=== PATIENT | female | born 1995 | race Two or more races ===

== ENCOUNTER 2024-11-24 17:56 | Emergency (ER) | payer BC, SELFPAY ==
--- NOTE | 2024-11-24 18:31 | XR_ITS ---
Examination: Knee, left , 3 views Technique: Knee AP, lateral, oblique 3 views Date and time of exam: 1 hrs. Indications: Laceration to the knee today with knee pain. Findings: No fracture or dislocation No foreign body Impression: No opaque foreign body
[2024-11-24 18:35] VITALS: BP 113/77; PULSE 88; RESP 18; TEMP 36.9; O2SAT 99; BMI 30.2
[2024-11-24] MEDS: AMOXICILLIN/POT CLAV 875 TABLET 1 TAB PO (19:11)
[2024-11-24] MEDS: DIPHTH,PERTUSS(ACELL),TET VAC 0.5 ML VIAL IMi (19:11)
[2024-11-24] MEDS: LIDOCAINE HCL 1% 20 ML VIAL INFL (19:11)
[2024-11-24] MEDS: BACITRACIN OINT 1 GM PACKET TOP (19:12)
--- NOTE | 2024-11-24 19:36 | EDNOTE_ITS ---
ED Wound/Laceration-RME/HPI General Chief Complaint: Wound/Laceration Stated Complaint: Laceration to left knee Time Seen by Provider: 11/24/24 18:14 Arrival date/time: 11/24/24 17:56 RME / HPI RME / HPI narrative: This section includes all my notes and documentations, including HPI, PE, and ED course. Alan Correa MD HPI: 28-year-old female here to be evaluated with left knee laceration. Injury occurred just prior to arrival outside while skateboarding. She found the left knee. No other complaints. ROS: All negative except as documented in HPI. Physical Exam: General: Alert and oriented. Eyes: Conjunctivae and lids clear. ENT: No nasal congestion. Neck: Supple. Lungs: No respiratory distress. Skin: Warm and dry. Neuro: Alert and oriented X 3. Left Knee: Anteriorly, there is a 4.5 cm full?skin thickness gaping wound with active bleeding. My interpretation of the left knee x-rays is no acute fracture, official radiology report is pending. At this point, diagnoses include left knee laceration. Laceration repair procedure note: The wound was prepped and draped in normal sterile fashion. Local anesthesia achieved with 1% lidocaine, Profuse irrigation performed under the sink with soap and water and with normal saline. Wound repaired with 7 simple sutures using 4-0 nylon. Good approximation and hemostasis achieved. Tdap and Augmentin given. Topical ABX and dressing applied. Patient tolerated well with no complications. Provided good wound care instructions. Based on my best medical judgment, made decision no further evaluation or treatment indicated at this time. Patient understands and agrees to the discharge instructions customized and printed, see below. Discharge instructions from Dr. Correa:? -- Your laceration was repaired with 7 stitches. -- Keep the current dressing intact for 24 hours. -- After 24 hours, change the dressing once daily. -- First remove the dressing gently.? If it does not come off easily, run water through it until it comes off easily. -- Then gently wash with soap and water. -- After completely drying, apply antibiotic ointment and new dressing. -- Elevate above the waist level today and tomorrow as much as possible.? -- See your doctor or return here in 7-10 days for suture removal.? Total of 7 stitches. -- Seek immediate medical care with fever, spreading redness from the wound, or with any concerns. Alan Correa MD Related Data Previous Rx's ?Medication ?Instructions ?Recorded amoxicillin 875 mg-potassium 1 tab PO BID #4 tabs 11/24/24 clavulanate 125 mg tablet Allergies Allergy/AdvReac Type Severity Reaction Status Date / Time No Known Allergies Allergy Verified 11/24/24 18:01 Course Quality Measures none Orders Category Date Time Status Wound Care [Wound Care] NOW Care 11/24/24 18:32 Active XR knee LT 3V Stat Exams 11/24/24 18:31 Taken Amoxicillin/Pot Clav 875 [Augmentin 875] Med 11/24/24 18:32 Discontinued 1 tab PO X1 ONE Bacitracin Oint pkt Med 11/24/24 18:32 Discontinued 1 gm TOP X1 ONE Lidocaine 1% 20 ml [Xylocaine 1% 20 ML] Med 11/24/24 18:32 Discontinued 20 ml INFL X1 ONE Tet,Diphth,Pertuss(Acell)-Tdap [Boostrix Vacc] Med 11/24/24 18:32 Discontinued 0.5 ml IMI .ONCE ONE Vital Signs Vital signs: Vital Signs Temperature 98.5 F 11/24/24 18:35 Pulse Rate 88 11/24/24 18:35 Respiratory Rate 18 11/24/24 18:35 Blood Pressure 113/77 11/24/24 18:35 Pulse Oximetry (%) 99 11/24/24 18:35 Oxygen Delivery Method Room Air 11/24/24 18:35 Wound / Laceration Patient data External records reviewed:: None Clinical information provided by:: patient Social determinants that could affect healthcare access:: none Patient has the following chronic illnesses:: None How is presenting disease/condition affected by chronic disease/condition?: no chronic disease Evaluation data The following diagnostics were reviewed and interpreted by me:: radiology exam(s) Lab and/or radiology exams considered but not ordered:: None Interpretation Summary: No fracture on left knee x-rays Medications / Prescriptions Medications or Prescriptions considered but not ordered:: None Medication administrations:: Medication Administration History Discontinued Medications Amoxicillin/Clavulanate Potassium (Amoxicillin/Pot Clav 875 Tablet) 1 tab PO X1 ONE Stop: 11/24/24 18:33 Last Admin: 11/24/24 19:11 Dose: 1 tab Documented By: CISCO Bacitracin (Bacitracin Oint 1 Gm Packet) 1 gm TOP X1 ONE Stop: 11/24/24 18:33 Last Admin: 11/24/24 19:12 Dose: 1 gm Documented By: CISCO Diphtheria/Tetanus/Acell Pertussis (Diphth,Pertuss(Acell),Tet Vac 0.5 Ml Vial) 0.5 ml IMi .ONCE ONE Stop: 11/24/24 18:33 Last Admin: 11/24/24 19:11 Dose: 0.5 ml Documented By: CISCO Lidocaine HCl (Lidocaine Hcl 1% 20 Ml Vial) 20 ml INFL X1 ONE Stop: 11/24/24 18:33 Last Admin: 11/24/24 19:11 Dose: 20 ml Documented By: CISCO Tdap and lidocaine and topical ABX and Augmentin Consultations Consultation(s) initiated? (list below): No Diagnosis Wound Differential Diagnosis: laceration, abrasion and other (Fracture, contusion) Most likely diagnosis given after review of the tests above:: Left knee laceration Admission Indicated Admission indicated?: not indicated Explain why admission is indicated or not indicated:: Admission criteria not met Admission Request Was there a request for admission?: No Disposition Plan Disposition Plan: Discharge Discharge Attestation Discharge Attestation: The patient and all family members were given an opportunity to ask questions and understood the discharge instructions. Discharge instructions specifically effects, indications for sooner follow up or return to the emergency department, and the expected course of current diagnosis. Patient condition: Stable Discharge Plan Plan Patient Disposition: HOME (Self Care) Prescriptions/Referrals Prescriptions/Med Rec: New amoxicillin-pot clavulanate 875-125 mg tablet 1 tab PO BID Qty: 4 0RF Referrals: No Primary/Family,Physician [Primary Care Provider] - In 1 week Problem List Clinical Impression: Laceration Patient/Caregiver Discharge Instructions Discharge Activity: activity as tolerated Education Materials: ED Laceration: All Closures Additional Instructions: Discharge instructions from Dr. Correa:? -- Your laceration was repaired with 7 stitches. -- Keep the current dressing intact for 24 hours. -- After 24 hours, change the dressing once daily. -- First remove the dressing gently.? If it does not come off easily, run water through it until it comes off easily. -- Then gently wash with soap and water. -- After completely drying, apply antibiotic ointment and new dressing. -- Elevate above the waist level today and tomorrow as much as possible.? -- See your doctor or return here in 7-10 days for suture removal.? Total of 7 stitches. -- Seek immediate medical care with fever, spreading redness from the wound, or with any concerns. Print Language: Fijian Stand Alone Forms: [facility] [employer] Info., Patient Portal Info Letter
[2024-11-24 19:43] VITALS: BP 118/76; PULSE 76; RESP 18; TEMP 36.7; O2SAT 99
== END 2024-11-24 19:46 | disposition home or self-care (01) ==
PROVIDERS: Emergency Provider Emergency Medicine
DX: S81.012A Laceration without foreign body, left knee, initial encounter (principal); V00.131A Fall from skateboard, initial encounter; Y93.51 Activity, roller skating (inline) and skateboarding; Z23 Encounter for immunization
CPT/HCPCS: 12002; 73562; 90471; 90715; 99283; J3490; A9270

== ENCOUNTER 2024-12-08 11:07 | Emergency (ER) | payer BC, SELFPAY ==
--- NOTE | 2024-12-08 11:26 | EDNOTE_ITS ---
ED Wound/Laceration-RME/HPI General Chief Complaint: Wound Recheck / Suture Removal Stated Complaint: LEFT KNEE SUTURE REMOVAL Time Seen by Provider: 12/08/24 11:10 Arrival date/time: 12/08/24 11:07 28-year-old female presents to the emergency department today for suture removal left knee Limitations: no limitations Related Data Previous Rx's ?Medication ?Instructions ?Recorded amoxicillin 875 mg-potassium 1 tab PO BID #4 tabs 11/24/24 clavulanate 125 mg tablet Allergies Allergy/AdvReac Type Severity Reaction Status Date / Time No Known Allergies Allergy Verified 12/08/24 11:08 Review of Systems Review of Systems Systems Reviewed: All systems reviewed, normal except as documented Constitutional Constitutional: Reports system reviewed and no additional complaints, except as documented, Denies fever(s) and Denies headache(s) Eyes Eyes: Reports system reviewed and no additional complaints, except as documented and Denies blurry vision ENT Ears, Nose, Mouth, and Throat: Reports system reviewed and no additional complaints, except as documented, Denies headache(s), Denies nasal congestion and Denies nasal discharge Cardiovascular Cardiovascular: Reports system reviewed and no additional complaints, except as documented, Denies chest pain and Denies dyspnea Respiratory Respiratory: Reports system reviewed and no additional complaints, except as documented, Denies chest congestion, Denies cough and Denies dyspnea Gastrointestinal Gastrointestinal: Reports system reviewed and no additional complaints, except as documented and Denies abdominal pain Integumentary/Breasts Skin/Breast: Reports system reviewed and no additional complaints, except as documented and Denies rash Neurologic Neurologic: Reports system reviewed and no additional complaints, except as documented, Reports as per HPI and Denies headache(s) Past Medical History Past Medical History NEUROLOGIC: Negative Neurological Disorders CARDIAC: Negative Cardiac Disorders ED Exam General Limitations: Present no limitations General appearance: Present alert and in no apparent distress Head Head exam: Present atraumatic Eye Eye exam: Present normal appearance, PERRL and EOMI ENT ENT exam: Present normal exam, normal oropharynx and mucous membranes moist Neck Neck exam: Present normal inspection, full ROM and trachea midline Chest Chest inspection: Present normal inspection and symmetric chest wall rise Respiratory Respiratory exam: Present normal lung sounds bilaterally Cardiovascular Cardiovascular exam: Present regular rate, normal rhythm and normal heart sounds Abdominal Exam Abdominal exam: Present soft and normal bowel sounds Extremities Exam Extremities exam: Present normal inspection, full ROM and normal capillary refi ll; Absent tenderness or joint swelling Back Exam Back exam: Present normal inspection and full ROM Neurological Exam Neurological exam: Present alert, oriented X3, CN II-XII intact, normal gait and reflexes normal; Absent motor sensory deficit Psychiatric Psychiatric exam: Present normal affect and normal mood Skin Skin exam: Present warm, dry and other (Sutures in place left) Course Quality Measures none Vital Signs Vital signs: O2 saturation 98% room air with normal Wound / Laceration MDM Narrative MDM Narrative:: 28-year-old female presents to the emergency department today for suture removal left knee On exam patient does not appear ill or toxic patient does not appear in acute distress no evidence of infection Sutures removed in their entirety there is a small wound dehiscence Patient discharged home in no distress to follow-up with primary care doctor in the next 24 to 48 hours and for any worsening symptoms to return to the ER immediately Patient data External records reviewed:: [facility] previous records Clinical information provided by:: patient Social determinants that could affect healthcare access:: none Patient has the following chronic illnesses:: None How is presenting disease/condition affected by chronic disease/condition?: no chronic disease Evaluation data The following diagnostics were reviewed and interpreted by me:: other (specify) (N/A) Lab and/or radiology exams considered but not ordered:: Consider not ordered Interpretation Summary: N/A Medications / Prescriptions Medications or Prescriptions considered but not ordered:: No meds Medication administrations:: No meds Consultations Consultation(s) initiated? (list below): No Diagnosis Wound Differential Diagnosis: laceration, abrasion and avulsion of skin Most likely diagnosis given after review of the tests above:: Suture removal Admission Indicated Admission indicated?: not indicated Admission Request Was there a request for admission?: No Disposition Plan Disposition Plan: Discharge Discharge Attestation Discharge Attestation: The patient and all family members were given an opportunity to ask questions and understood the discharge instructions. Discharge instructions specifically effects, indications for sooner follow up or return to the emergency department, and the expected course of current diagnosis. Patient condition: Stable Discharge Plan Plan Patient Disposition: HOME (Self Care) Disposition Comment: Stable Prescriptions/Referrals Prescriptions/Med Rec: No Action amoxicillin-pot clavulanate 875-125 mg tablet 1 tab PO BID Qty: 4 0RF Problem List Clinical Impression: Visit for suture removal Patient/Caregiver Discharge Instructions Education Materials: ED Stitches/Staple Removal No ... 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 Correa
== END 2024-12-08 11:26 | disposition home or self-care (01) ==
PROVIDERS: Emergency Provider Emergency Medicine
DX: Z48.02 Encounter for removal of sutures (principal)
CPT/HCPCS: 99282

== ENCOUNTER 2025-03-14 09:09 | Outpatient (AMB) | payer BC, SELFPAY ==
[2025-03-14 09:30] VITALS: BP 114/67; PULSE 81; RESP 16; TEMP 36.5; O2SAT 98; BMI 29.7
--- NOTE | 2025-03-14 09:30 | OBCLNT_ITS ---
Vital Signs 03/14/25 09:30 Height 1.68 m Height Method Stated Weight 83.574 kg Weight Measurement Method Standing Scale BMI 29.7 BP 114/67 Blood Pressure Source Automatic Cuff Blood Pressure Location Left Upper Arm Position Sitting Respiration 16 Pulse 81 Pulse Source Monitor Temp 97.7 F Temp Source Oral Pulse Oximetry (%) 98 Oxygen Delivery Method Room Air Allergies/Home Meds Allergies & Medications Allergies No Known Allergies Allergy (Verified 03/14/25 09:31) Intake Visit Data Collection New Patient or Established: Established Patient (seen at [facility] within 3 years) Reason for Visit:: INITIAL CACRE Seen by Clinical Staff ONLY (RN/MA): No Water Restoration Technician Required: No Do You Feel Safe at Home: Yes Authorities Contacted: N/A PCP or OBGYN visit in last 3 months: Yes Hx Now: Yes Are you currently on any form of Control: No Last menstrual period: 11/22/24 Pain Present Currently: No Pain Scale Used: Douglas-Shine/Numerical Pain scale:: 0 Smoking Status Smoking Status: Current some day smoker Cessation Counseling Provided: YVAN was advised that quitting smoking is the single most important factor to protect the health of themselves and their family. Discussed the benefits of quitting smoking with patient. Encouraged patient to quit smoking and provided Cessation assistance materials and resources. Tobacco Use: Cigarette (3/day) Years smoked: 8 Are you interested in Quitting?: No Questionnaires Covid-19 Vaccine Questionnaire Has patient been vacinated for Covid-19 Have you been vacinated for Covid-19: No PHQ-9 PHQ-2 Over the last 2 weeks, how often have you been bothered by any of the following problems? 1. Little interest or pleasure in doing things: more than half the days 2. Feeling down, depressed, or hopeless: several days Total score: 3 PHQ-9 3. Trouble falling or staying asleep, or sleeping too much: Not at all 4. Feeling tired or having little energy: Several days 5. Poor appetite or overeating: Not at all 6. Feeling bad about yourself - or that you are a failure or have let yourself or your family down: Not at all 7. Trouble concentrating on things, such as reading the newspaper or watching television: Not at all 8. Moving or speaking so slowly that other people could have noticed? - Or the opposite - being so fidgety or restless that you have been moving around a lot more than usual: not at all 9. Thoughts that you would be better off or of hurting yourself in some way: Not at all Total score: 4.0 Source: Developed by Drs. Justice May, Italia Mtz, Claudio Moreno and colleagues, with an educational sean from [employer]. Depression screen completed yes Social History Living Situation History Marital Status: Single Lives With: Children Housing: Apartment Tobacco History Smoking Status: Current some day smoker Second Hand Smoke Exposure: Yes Alcohol History Alcohol Intake: Former Alcohol Intake Frequency: holidays/special occasions only Substance Use History Substance Use: MARIJUANA Domestic Abuse History Do You Feel Safe at Home: Yes Past Medical History Past Medical History Have you ever been diagnosed with any of the following: Neurological Problems Cerebrovascular Accident (CVA): No Transient Ischemic Attacks (TIA): No Dementia: No Alzheimer's Disease: No Parkinson's Disease: No Brain Tumor: No Seizures: No Guillain-[place] Syndrome: No Cardiology Problems Myocardial Infarction: No Cardiac Arrhythmia: No Atrial Fibrillation: No Aneurysm: No Congestive Heart Failure: No Hypotension: No Respiratory Problems Chronic Obstructive Pulmonary Disease (COPD): No Asthma: No Bronchitis: No Emphysema: No Tuberculosis: No Hx Cough: No Cough: No Wheezing: No Smoking: No Smoking Cessation Counseling: No Smoking Exposure: No Tobacco Use: No Stomache/Intestinal Problems Liver Cancer: No Hepatitis: No Cirrhosis: No Pancreatic Cancer: No Gall Bladder Disease: No Crohn's Disease: No Genital/Urinary Problems Chronic Kidney Disease: No Renal Disease: No Inguinal Hernia: No Dialysis: No Reproductive Problems Breast Cancer: No Endometriosis: No Fibroids: No Genital Herpes: No Previous Pregnancies: Yes Syphilis: No Uterine Prolapse: No Musculoskeletal Problems Muscular Dystrophy: No Myasthenia Gravis: No Marfan's Syndrome: No Gout: No Scoliosis: No Carpal Tunnel Syndrome: No Fibromyalgia: No Head,Eye,Nose,Throat Problems Cataracts: No Glaucoma: No Blind: No Retinal Detachment: No Macular Degeneration: No Endocrine Problems Diabetes Mellitus Type 1: No Diabetes Mellitus Type 2: No [place]'s Syndrome: No Bolivar's Disease: No Blood Problems Anemia: No Leukemia: No Sickle Cell Disease: No Clotting Problems: No Psychologic Problems Schizophrenia: No Recreational Drug Use: No Bipolar Disorder: No Depression: Yes Anxiety: No Behavior Problems: No Self-Mutilation: No Attention Deficit Disorder: No Attention Deficit Hyperactivity Disorder: No Depression: No Post Traumatic Stress Disorder: No Eating Disorder: No Other Problems Hospitalization: No Autoimmune Disease: No Down Syndrome: No Autism: No Developmental Delay: No Cosmetic Surgery: No Shingles: No Chicken Pox: No Measles: No Mumps: No Lung Cancer: No Ovarian Cancer: No Surgical History Angioplasty: No Appendectomy: No Bariatric Surgery: No Breast Surgery: No Cancer Surgery: No Pacemaker: No Sinus Surgery: No Splenectomy: No History of Present Illness HPI Narrative 29-year-old 4 para 2 SAB 1 comes first visit today at [facility] OB clinic. Last period November 22, 2024. Estimated due date August 28, 2025. Reports sure dates. Menses are every month x 5 days. Unplanned . Father the baby is involved. Patient denies any coexisting chronic illnesses. History of marijuana use the this . And she had a tummy tuck 3 years ago. Reports that nausea is resolved. She is. Patient taking Gummies. Denies any come plaints or discomforts with the at this time. Patient has stopped working. OB Initial Visit OB Flowsheet OB Flowsheet Initial Weight: Not Recorded Date -?-?-?-?-?-?-?-?-?-?-?-?- EGA Weight Edema CTX Effacement BP Fundal ht Pres Dilation Effacement Station Visit Note Alb Glu FHR Mov 03/14/25 -?-?-?-?-?-?-?-?-?-?-?-?- 16w 0d 83.574 kg absent absent 114/67 16 29-year-old 4 para 2 with good dates. Unplanned . No complaints of discomforts. No SAB complaints. Father of the baby is involved. Patient is still ambivalent about . Continue to take Gummies. Advised taking vitamin D and calcium supplement as well. Avoid THC. Discussed diet and weight. I ordered OB panel. And I also ordered NIPT and carrier screens. Patient scheduled with maternal- medicine for anatomy scan. Return in 4 weeks OB check 146 active Menstrual History Menstrual reliability: approximate (month known) Flow: normal Menstrual regularity: regular Monthly: Yes Age at menarche: 14 On control pills at conception: No Date of positive home test: 02/11/25 Associated symptoms (LMP): Reports nausea, vomiting, fatigue and breast tenderness OB History : 4 Para: 2 Hx Total # of Abortions (Spontaneous & Elective): 1 # of Living Children: 2 Delivery History 1st : Child's name: DANIELLE date: 05/31/15 sex: male Delivery type: vaginal Delivery complications: NONE History of depression before or after : No 2nd : Child's name: PIOTR date: 05/31/17 sex: male Delivery type: vaginal Delivery complications: NONE History of depression before or after : No Infection History & Risk Evaluation History of STDs: none Genetic Screening & History Genetic Screening/Teratology Counseling - Includes patient, baby's father, or anyone in either family with: 1. Patient's age 35 years or older as of estimated date of delivery: No 2. Thalassemia (Belgian, Pitcair[place] Islander, Mediterranean, or Background); MCV less than 80: No 3. Neural Tube Defect (Meningomyelocele, Spina Bifida, or Anencephaly): No 4. Congenital Heart Defect: No 5. Down Syndrome: No 6. Vinod-Sachs (Ashkenazi Roman Catholic, Cajun, Kyrgyz Kittitian): No 7. Brenda Disease (Ashkenazi Roman Catholic): No 8. Familial Dysautonomia (Ashkenazi Roman Catholic): No 9. Sickle Cell Disease or Trait (): No 10. Hemophilia or other blood disorders: No 11. Muscular Dystrophy: No 12. Cystic Fibrosis: No 13. [place]'s Chorea: No 14. Mental Retardation/Autism: No 15. Other inherited genetic or chromosomal disorder: No 16. Maternal Metabolic Disorder (EG,TYPE 1 Diabetes, PKU): No 17. Patient or baby's father had a child with defects not listed above: No 18. Recurrent loss or a stillbirth: No 19. Medications (including supplements, vitamins, herbs or otc drugs)/illicit/recreational drugs/alcohol since last menstrual period: No 20. Any other: No Infection History 1. Live with someone with TB or exposed to TB: No 2. Rash or viral illness since last menstrual period: No 3. Hepatitis B,C: No Other (see comments) Source: [employer] Review of Systems Review of Systems Systems Reviewed: All systems reviewed, normal except as documented Constitutional Constitutional: Reports fatigue Gastrointestinal Gastrointestinal: Reports nausea and Reports vomiting Endocrine Endocrine: Reports fatigue Exam General Limitations: no limitations General Appearance: alert, in no apparent distress, comfortable, cooperative, healthy appearing, well developed and well groomed Head Head exam: atraumatic, normocephalic and normal inspection Chest Chest inspection: Present normal inspection and symmetric chest wall rise Resp Respiratory exam: Present normal lung sounds bilaterally Card Cardiovascular exam: Present regular rate, normal rhythm and normal heart sounds Abdominal Abdominal exam: Present soft (fh:16, fht: 146), normal bowel sounds and scar (low skin incision, tummy tuck) Psych Psychiatric exam: Present normal affect and normal mood Skin Skin exam: Present warm, dry, intact and normal color Assessment & Plan Diagnosis / Problem List (1) Supervision of normal intrauterine in multigravida in second trimester: Status: Acute Plan Continue Gummies. Advised to start vitamin D and calcium. Discussed diet and weight loss. Increase fluids. Avoid sugary foods and drinks. Schedule anatomy scan with MFM. OB panel today. NIPT with carrier screening today. SAB precautions. Return in 4 weeks OB follow-up Additional Plan Follow Up: 4 Weeks (rtc for OBC) Office Procedures OB Clinic LOC & Office Proc's Nursing/Assessment Patient Status: Established Patient OB Clinic Nursing Assessment: Medication Reconciliation, Update PMH in EMR and Vital Signs OB Clinic Coordination of Care: Complex Care and Chronic Disease 1-5, Consent,records obtained, informed consent, Education Simp Pt/Fam, Lab and Imaging orders, Results/Orders obtained and Staff clarify orders Special Needs: Heart tones Established Patient Charge Established Patient Point Assignment: 135 Established Patient Point Charge: EP Level 4 (120-155)
== END 2025-03-14 09:49 | disposition home or self-care (01) ==
LOC: HODSOBC 09:09
PROVIDERS: Supervising Provider Advanced Practice Midwife; Visit Provider Advanced Practice Midwife
DX: O09.892 Supervision of other high risk pregnancies, second trimester (principal); Z3A.16 16 weeks gestation of pregnancy; O99.332 Smoking (tobacco) complicating pregnancy, second trimester; F17.210 Nicotine dependence, cigarettes, uncomplicated; Z71.6 Tobacco abuse counseling; O99.322 Drug use complicating pregnancy, second trimester; F12.90 Cannabis use, unspecified, uncomplicated
CPT/HCPCS: 99214; G0463

== ENCOUNTER 2025-04-11 09:13 | Outpatient (AMB) | payer BC, SELFPAY ==
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
[2025-04-11 09:46] VITALS: BP 119/77; PULSE 88; RESP 16; TEMP 36.6; O2SAT 98; BMI 30.7
[2025-04-11 11:28] LABS: Bilirubin,Urine Clinitek Negative (Negative); Blood,Urine Clinitek Negative (Negative); Glucose, Urine Clinitek Negative (Negative); Ketones,Urine Clinitek Negative (Negative); Leukocyte Esterase,Urine Clin Negative (Negative); Nitrite,Urine Clinitek Negative (Negative); PH,Urine Clinitek 8.5 (5.0-7.0); Protein,Urine Clinitek Negative (Neg - Trace); Specific Gravity,Urine Clin 1.015 (1.001-1.030); Urobilinogen,Urine Clinitek 0.2 mg/dL (0.0-1.0)
== END 2025-04-11 10:18 | disposition home or self-care (01) ==
LOC: HODSOBC 09:13
PROVIDERS: Supervising Provider Advanced Practice Midwife; Visit Provider Advanced Practice Midwife
DX: O09.892 Supervision of other high risk pregnancies, second trimester (principal); O99.332 Smoking (tobacco) complicating pregnancy, second trimester; F17.210 Nicotine dependence, cigarettes, uncomplicated; Z3A.20 20 weeks gestation of pregnancy; Z71.6 Tobacco abuse counseling
CPT/HCPCS: 81001; 99215; G0463

== ENCOUNTER 2025-04-26 09:26 | Outpatient (AMB) | payer BC, SELFPAY ==
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
[2025-04-26 09:48] VITALS: BP 109/73; PULSE 83; RESP 18; TEMP 36.5; O2SAT 98; BMI 31.1
== END 2025-04-26 10:14 | disposition home or self-care (01) ==
LOC: HODSOBC 09:26
PROVIDERS: PCP Advanced Practice Midwife; Referring Provider Advanced Practice Midwife; Supervising Provider Advanced Practice Midwife; Visit Provider Advanced Practice Midwife
DX: Z34.82 Encounter for supervision of other normal pregnancy, second trimester (principal); Z3A.22 22 weeks gestation of pregnancy
CPT/HCPCS: 99214; G0463

== ENCOUNTER 2025-06-06 09:13 | Outpatient (AMB) | payer BC, SELFPAY ==
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
[2025-06-06 09:46] VITALS: BP 106/73; PULSE 100; RESP 17; TEMP 36.3; O2SAT 97; BMI 31.6
== END 2025-06-06 09:59 | disposition home or self-care (01) ==
LOC: HODSOBC 09:13
PROVIDERS: PCP Advanced Practice Midwife; Referring Provider Advanced Practice Midwife; Supervising Provider Obstetrics & Gynecology; Visit Provider Advanced Practice Midwife
DX: Z34.83 Encounter for supervision of other normal pregnancy, third trimester (principal); Z3A.28 28 weeks gestation of pregnancy
CPT/HCPCS: 99214; G0463

== ENCOUNTER 2025-07-25 08:33 | Outpatient (AMB) | payer BC, SELFPAY ==
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
[2025-07-25 08:47] VITALS: BP 114/77; PULSE 93; RESP 18; TEMP 36.2; O2SAT 98; BMI 34.0
== END 2025-07-25 09:31 | disposition home or self-care (01) ==
LOC: HODSOBC 08:33
PROVIDERS: Supervising Provider Advanced Practice Midwife; Visit Provider Advanced Practice Midwife
DX: O09.93 Supervision of high risk pregnancy, unspecified, third trimester (principal); Z3A.35 35 weeks gestation of pregnancy
CPT/HCPCS: 99214; G0463

== ENCOUNTER 2025-08-01 08:59 | Outpatient (AMB) | payer BC, SELFPAY ==
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
[2025-08-01 09:30] VITALS: BP 118/76; PULSE 86; RESP 16; TEMP 36.2; O2SAT 98; BMI 34.9
== END 2025-08-01 09:57 | disposition home or self-care (01) ==
PROVIDERS: PCP Advanced Practice Midwife; Referring Provider Advanced Practice Midwife; Supervising Provider Advanced Practice Midwife; Visit Provider Advanced Practice Midwife
DX: O09.893 Supervision of other high risk pregnancies, third trimester (principal); O99.820 Streptococcus B carrier state complicating pregnancy; O24.410 Gestational diabetes mellitus in pregnancy, diet controlled; Z3A.36 36 weeks gestation of pregnancy; Z71.6 Tobacco abuse counseling; F17.210 Nicotine dependence, cigarettes, uncomplicated
CPT/HCPCS: 99213; G0463

== ENCOUNTER 2025-08-16 08:36 | Outpatient (AMB) | payer BC, SELFPAY ==
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
[2025-08-16 08:51] VITALS: BP 120/80; PULSE 94; RESP 16; TEMP 36.6; O2SAT 98; BMI 36.0
== END 2025-08-16 09:24 | disposition home or self-care (01) ==
LOC: HODSOBC 08:36
PROVIDERS: PCP Family Medicine; Referring Provider Family Medicine; Supervising Provider Advanced Practice Midwife; Visit Provider Advanced Practice Midwife
DX: O09.893 Supervision of other high risk pregnancies, third trimester (principal); Z3A.38 38 weeks gestation of pregnancy; O99.333 Smoking (tobacco) complicating pregnancy, third trimester; Z71.6 Tobacco abuse counseling; F17.210 Nicotine dependence, cigarettes, uncomplicated
CPT/HCPCS: 99213; G0463

== ENCOUNTER 2025-08-24 13:00 | Observation (INO) | payer BC, SELFPAY ==
[2025-08-24 13:11] VITALS: BP 118/75; PULSE 88
[2025-08-24 13:22] VITALS: BMI 36.6
[2025-08-24 13:23] VITALS: RESP 16; TEMP 36.7; O2SAT 98
[2025-08-24 13:33] VITALS: BP 118/75; PULSE 88; RESP 16; RESP 98; TEMP 36.7
== END 2025-08-24 13:50 | disposition home or self-care (01) ==
PROVIDERS: Admitting Provider Advanced Practice Midwife; Visit Provider Advanced Practice Midwife
DX: O26.893 Other specified pregnancy related conditions, third trimester (principal); Z3A.39 39 weeks gestation of pregnancy; R10.2 Pelvic and perineal pain
CPT/HCPCS: 59025; 59899

== ENCOUNTER 2025-08-30 09:28 | Outpatient (AMB) | payer BC, SELFPAY ==
[2025-08-30 09:50] VITALS: BP 126/83; PULSE 88; RESP 16; TEMP 36.5; O2SAT 98; BMI 37.2
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
== END 2025-08-30 10:24 | disposition home or self-care (01) ==
PROVIDERS: Supervising Provider Advanced Practice Midwife; Visit Provider Advanced Practice Midwife
DX: O09.893 Supervision of other high risk pregnancies, third trimester (principal); O99.333 Smoking (tobacco) complicating pregnancy, third trimester; F17.210 Nicotine dependence, cigarettes, uncomplicated; Z3A.40 40 weeks gestation of pregnancy; Z71.6 Tobacco abuse counseling
CPT/HCPCS: 99214; G0463

== ENCOUNTER 2025-08-30 14:26 | Outpatient (CLI) | payer BC, SELFPAY ==
--- NOTE | 2025-08-30 14:38 | XR_ITS ---
Examination: Complete OB ultrasound greater than 14 weeks Date and time of exam: August 30, 2025 1442 hours INDICATIONS: Diagnosis post dates Findings: Viable intrauterine single fetus with single amniotic sac presentation cephalic spine maternal right Cardiac motion 135 BPM Placenta fundal grade 2 Umbilical cord insertion seen. Amniotic fluid index 10.2 cm Cervix 3.3 cm closed Ovaries obscured by the gestation. Composite estimated gestational age based on BPD, head circumference, abdominal circumference, femur length is 37 weeks 5 days Estimated weight 3247 g. Survey of intracranial anatomy, spinal anatomy, abdominal anatomy, four-chamber heart performed with no abnormalities identified. Impression: Viable intrauterine gestation cephalic presentation.
--- NOTE | 2025-08-30 14:38 | XR_ITS ---
Examination: Biophysical profile, ultrasound Date and time of exam: August 30, 2025 1433 hours INDICATIONS: Diagnosis post dates Technique: Multiple transabdominal sonographic images of the pelvis abdomen obtained. Attention is directed to the breathing movement, gross body movement, amniotic fluid volume and tone. Findings: Amniotic fluid index 8.7 cm Total biophysical profile is 8 of 8. breathing movement is 2. Gross body movement is 2. tone is 2. Qualitative amniotic fluid volume is 2 Impression: Biophysical profile is 8 of 8.
[2025-08-30 15:12] VITALS: BP 127/71; PULSE 83
[2025-08-30 15:21] VITALS: BP 127/71; PULSE 83; RESP 18; RESP 99; TEMP 36.7; BMI 37.4
--- NOTE | 2025-09-02 12:55 | PC.NURSE ---
CALLED PT TWICE, NO ANSWER, LEFT VOICEMAIL
== END 2025-08-30 15:45 | disposition home or self-care (01) ==
LOC: S4S1 14:27 → S4SX 14:36
PROVIDERS: Referring Provider Obstetrics & Gynecology; Visit Provider Advanced Practice Midwife
DX: Z34.83 Encounter for supervision of other normal pregnancy, third trimester (principal); Z3A.37 37 weeks gestation of pregnancy
CPT/HCPCS: 59025; 76805; 76819

== ENCOUNTER 2025-09-02 14:23 | Inpatient (IN) | payer BC, SELFPAY ==
[2025-09-02] VITALS (9 sets, daily range): BP systolic 118–162; BP diastolic 60–86; PULSE 74–85; RESP 14–19; TEMP 36.5–37.2; BMI 37.5
[2025-09-02] MEDS: Ampicillin Inj 2,000 MG in SODIUM CHLORIDE 0.9% (POP) 100 ML 200 MG IV (15:15)
[2025-09-02 15:23] LABS: Basophils # (Auto) 0.0 Thou/mm3 (0.0-0.2); Basophils % (Auto) 0 % (0-2.5); Eosinophils # (Auto) 0.1 Thou/mm3 (0.0-0.5); Eosinophils % (Auto) 1 % (0-10); Hematocrit 32.4 % (36.0-46.0); Hemoglobin 11.0 g/dL (12.0-16.0); Immature Granulocytes Auto 0.02 Thou/mm3 (0.00-0.00); Lymphocytes # (Auto) 1.2 Thou/mm3 (1.0-4.8); Lymphocytes % (Auto) 20 % (10-50); Mean Corpuscular HGB Conc 34.0 g/dl (31.0-37.0); Mean Corpuscular Hemoglobin 30.9 pg (25.0-35.0); Mean Corpuscular Volume 91 fL (80-100); Monocytes # (Auto) 0.5 Thou/mm3 (0.0-0.8); Monocytes % (Auto) 8 % (0-12); Neutrophils # (Auto) 4.3 Thou/mm3 (1.8-7.7); Neutrophils % (Auto) 71 % (37-80); Nucleated Red Blood Cell # 0.00 Thou/mm3 (0.00-0.00); Nucleated Red Blood Cell % 0 /100 WBC (0); Platelet Count 192 Thou/mm3 (140-440); RDW Standard Deviation 44.8 fL (36.4-46.3); Red Blood Count 3.56 Miln/mm3 (4.00-5.20); White Blood Count 6.0 Thou/mm3 (3.6-11.0)
[2025-09-02 15:35] LABS: ROM Kit Lot # 1014125
[2025-09-02 15:36] LABS: ROM Kit Exp Date# 01182028; ROM Swab Mixed By: ML; Rupture of Fetal Membranes Negative (Negative); Swb Mxed in Solvent 1 min? Yes
[2025-09-02 16:00] LABS: Syphilis Nonreactive (Nonreactive)
--- NOTE | 2025-09-02 16:56 | ESHP_ITS ---
Documentation for date of: 09/02/25 OB Labor/Induct. HPI History of Present Illness Chief complaint: Induction of labor, postdates : 4 Term pregnancies: 2 pregnancies: 0 Living children: 2 History of Abortions: Spontaneous and Elective: 1 History of sections: No History of : No Date of last menstrual period: 11/22/25 MELINA: 08/29/25 Gestational Age (weeks): 40 Gestational Age (days): 4 Gestational age based on last menstrual period: -11 Indication for induction: post dates History of present illness: The patient is a 29-year-old -0-1-2 at 40 weeks and 4 days with all care uncomplicated with Pearl at the [facility] who presented for scheduled induction of labor secondary to postdates. Patient is positive for strep and ampicillin was started. She was 3 cm 80% -2 on admission. Oral Cytotec was ordered and ampicillin begun. She had an epidural with both her children is unsure if she wants 1 today. Her largest baby was 8 pounds. She denies any problems with her deliveries including blood transfusions hemorrhages or bad lacerations. No history of shoulder dystocia. Her care is up-to-date and the on the chart. She did have a elevated 1 hour glucose at 156 and never did her 3-hour glucose. History of Present Dating criteria: LMP confirmed by 2nd trimester US Adequate Care: Yes Ultrasounds: normal mid trimester US Obstetrical complications: none Medical complications: other (BMI of 37) Labs Maternal Blood Type: O Pos Labs: Positive: Rubella Titre and Group Beta Strep, Negative: RPR, Hepatitis B, HIV, Chlamydia and Gonorrhea and Unknown: Herpes Type 1, Herpes Type 2 and Covid-19 Past Medical History Surgical History SURGICAL: Negative Section Past Medical History Comments PMH COMMENT: Patient has had a tummy tuck and 2 vaginal deliveries in the past. No chronic medical problems. Meds Home Medications and Allergies Home Medications ?Medication ?Instructions ?Recorded ?Confirmed ?Type No Known Home Medications 04/11/2512/24 History Allergies Allergy/AdvReac Type Severity Reaction Status Date / Time No Known Allergies Allergy Verified 08/30/25 09:51 OB Exam Physical Exam Vital signs: Temp Pulse Resp BP O2 Del Method 98.9 F 85 19 130/71 Room Air 09/02/25 14:40 09/02/25 14:36 09/02/25 14:40 09/02/25 14:36 09/02/25 14:40 Detailed Labor and Delivery Exam Dilation (cm): 3 Effacement (%): 80 Cervix position: anterior station: -2 Consistency: soft Presentation: Vertex Membranes: intact monitor accelerations: 15x15 monitor decelerations: None senior living variability: Moderate (11-25) Contraction frequency (min): Irregular Tachysystole: No Contraction intensity: Mild OB Results Labs 09/02/25 14:40 Labs: Short CBC 09/02/25 Range/Units 14:40 WBC 6.0 (3.6-11.0) Thou/mm3 Hgb 11.0 L (12.0-16.0) g/dL Hct 32.4 L (36.0-46.0) % Plt Count 192 (140-440) Thou/mm3 OB Assessment & Plan Assessment and Plan (1) Encounter for supervision of high risk in third trimester, antepartum: Status: Acute Assessment and plan: For Cytotec IOL (2) Mother positive for group B Streptococcus colonization: Status: Acute Assessment and plan: Ampicillin Additional Plan Induction method: per misoprostol protocol Plan: induction, anticipate NVD and GBS prophylaxis tx
[2025-09-02 18:12] LABS: Amphetamine/Metham Scrn,Ur OB Negative (Negative); Benzoylecgonine Screen, Ur OB Negative (Negative); Opiate Screen,Urine OB Negative (Negative); THC Screen,Urine OB Negative (Negative)
[2025-09-02] MEDS: Ampicillin Inj 1,000 MG in SODIUM CHLORIDE 0.9% (Popper) 50 ML 50 MG IV ×2 (19:06→23:03)
[2025-09-03] VITALS (21 sets, daily range): BP systolic 108–142; BP diastolic 56–88; PULSE 55–88; RESP 14–19; TEMP 36.6–36.8
[2025-09-03] MEDS: Ampicillin Inj 1,000 MG in SODIUM CHLORIDE 0.9% (Popper) 50 ML 50 MG IV ×6 (03:10→23:06)
[2025-09-03] MEDS: RINGERS LACTATED 1000 ML 1,000 ML 100 ML IV (19:17)
[2025-09-03] MEDS: OXYTOCIN in NS 30 units 30 UNIT/500 ML BAG IV (19:36)
[2025-09-04] VITALS (43 sets, daily range): BP systolic 102–153; BP diastolic 52–75; PULSE 50–92; RESP 14–20; TEMP 36.5–36.9; O2SAT 98–100
[2025-09-04] MEDS: Ampicillin Inj 1,000 MG in SODIUM CHLORIDE 0.9% (Popper) 50 ML 50 MG IV ×2 (03:05→07:09)
[2025-09-04] MEDS: OXYTOCIN in NS 30 units 30 UNIT/500 ML BAG 9 UNIT IV (03:52)
[2025-09-04] MEDS: RINGERS LACTATED 1000 ML 1,000 ML 100 ML IV (04:40)
--- NOTE | 2025-09-04 07:40 | PD.LDPN ---
Documentation for date of: 09/04/25 OB Labor Progress Note Pain Control Pain control: tolerating well Comments: Patient is a 29-year-old -0-0-2 whose been in labor for about a day and a half. She has had Cytotec x 3 Cervidil and now she is on Pitocin at 10 milliunits/min. Patient was examined this morning and gave permission for an amniotomy. She is 580-2 IUPC placed clear fluid noted. Pelvic Exam Dilation (cm): 5.5 Effacement (%): 90 station: -2 Amniotic membrane status: Ruptured Contractions Monitor mode: External Contraction frequency: 1-3 Contraction pattern: Coupling Contraction intensity: Moderate Status status: Category ll Assessment and Plan Pitocin rate (mU/min): 11 Assessment: induction ongoing Plan OB labor note: continuous present management Comments: Patient at this time is declining epidural.
[2025-09-04] MEDS: OXYTOCIN INJ 10 UNIT/ML VIAL IM (08:40)
[2025-09-04] MEDS: METHYLERGONOVINE INJ 0.2 MG/ML VIAL IM (08:43)
[2025-09-04] MEDS: LIDOCAINE HCL 1% 20 ML VIAL INFL (08:44)
[2025-09-04] MEDS: OXYTOCIN in NS 20 units 20 UNIT/1,000 ML BAG 125 UNIT IV (08:45)
[2025-09-04] MEDS: TRANEXAMIC ACID 1,000 MG IVPB 1,000 MG/100 ML BAG 200 MG IV ×2 (09:04→09:27)
--- NOTE | 2025-09-04 09:12 | OBDSUM_ITS ---
Data ([facility]) Data Hx Section: No : 4 Term: 2 : 0 Livin Abortions: Spontaneous & Theraputic: 1 Delivery Data ([facility]) Labor Data Initiation of labor: Induction Induction/Augmentation Agent: Cytotec-PO, Cervidil, Pitocin and Artificial ROM ROM date: 09/04/25 ROM time: 07:28 Amniotic membrane rupture type: Artificial Amniotic fluid description: Clear Delivery Data EDC: 08/29/25 EDC calculated by:: LMP/early US confirmation Date of arrival to unit: 09/02/25 Time of arrival to unit: 14:23 Onset of labor date: 09/02/25 Onset of labor time: 10:15 Complete dilation date: 09/04/25 Complete dilation time: 08:29 [place] delivery date: 09/04/25 [place] delivery time: 08:31 Gestational age (weeks): 40 Gestational age (days): 6 Placenta delivery date: 09/04/25 Placenta delivery time: 08:40 Stage 1 total time: Labor - Stage 1 Duration 46 hours and 14 minutes Delivered by: deondre hawkins Delivery nurse: linnea Vannorn nurse: nohemi elena Analysis Reporting Developer at delivery: No Support person(s) at delivery: fob Delivery Method Delivery method: Normal Vaginal Delivery Presentation: Vertex position: OA Anesthesia Type Anesthesia Type: None and Local Delivery Room Medications Delivery room medications: Lidocaine (local), Methergine 0.2 mg IM, Pitocin 10 u IM, Cytotec 800 SD and other (TXA) Placenta Placenta delivery description: Spontaneous (inspected intact) Cord blood sent to lab: Yes cord blood collection: Cord Blood Type Lacerations #1: Periurethral: small Perineal repair Sutures used for repair: 3.0 Vicryl EBL Estimated blood loss (ml): 400 Umbilical Cord cord description: 3 Vessels Data ([facility]) Data order: 1 's gender: Female Identification band number: [id number] weight (gms): 3880 g Weight (pounds): 8 lbs and 8.9 ozs length: 50.8 cm 1 minute: 8 5 minutes: 9
[2025-09-04] MEDS: IBUPROFEN TAB 400 MG TABLET 800 MG PO ×2 (09:38→21:02)
[2025-09-04] MEDS: BENZO/LANO/ALOE (Dermoplast) 60 GM CAN 1 SPRAY TOP (10:36)
[2025-09-04 17:12] LABS: Basophils # (Auto) 0.0 Thou/mm3 (0.0-0.2); Basophils % (Auto) 0 % (0-2.5); Eosinophils # (Auto) 0.1 Thou/mm3 (0.0-0.5); Eosinophils % (Auto) 1 % (0-10); Hematocrit 27.1 % (36.0-46.0); Hemoglobin 9.2 g/dL (12.0-16.0); Immature Granulocytes Auto 0.02 Thou/mm3 (0.00-0.00); Lymphocytes # (Auto) 1.3 Thou/mm3 (1.0-4.8); Lymphocytes % (Auto) 15 % (10-50); Mean Corpuscular HGB Conc 33.9 g/dl (31.0-37.0); Mean Corpuscular Hemoglobin 30.5 pg (25.0-35.0); Mean Corpuscular Volume 90 fL (80-100); Monocytes # (Auto) 0.5 Thou/mm3 (0.0-0.8); Monocytes % (Auto) 6 % (0-12); Neutrophils # (Auto) 6.6 Thou/mm3 (1.8-7.7); Neutrophils % (Auto) 78 % (37-80); Nucleated Red Blood Cell # 0.00 Thou/mm3 (0.00-0.00); Nucleated Red Blood Cell % 0 /100 WBC (0); Platelet Count 159 Thou/mm3 (140-440); RDW Standard Deviation 43.7 fL (36.4-46.3); Red Blood Count 3.02 Miln/mm3 (4.00-5.20); White Blood Count 8.5 Thou/mm3 (3.6-11.0)
[2025-09-04] MEDS: DOCUSATE SOD 100 MG CAPSULE PO (21:03)
[2025-09-05 00:43] VITALS: BP 121/82; PULSE 78; RESP 14; TEMP 36.7; O2SAT 99
[2025-09-05 04:10] VITALS: BP 122/72; PULSE 84; RESP 16; TEMP 36.7; O2SAT 100
[2025-09-05 08:00] VITALS: BP 112/70; PULSE 85; RESP 16; TEMP 36.7; O2SAT 100
--- NOTE | 2025-09-05 08:07 | ESPR_ITS ---
Subjective Subjective Interval history: No complaints of pain. No dizziness. Bonding and breast-feeding Exam Vital Signs Temp Pulse Resp BP Pulse Ox O2 Del Method 98.0 F 84 16 122/72 100 Room Air 09/05/25 04:10 09/05/25 04:10 09/05/25 04:10 09/05/25 04:10 09/05/25 04:10 09/05/25 04:10 Narrative Exam Vital signs stable afebrile. Breasts are soft. Fundus firm below umbilicus. Perineum intact no swelling. Small lochia. Uterus well involuted. At umbilicus. Negative Homans' sign. 2+ DTRs no warmth no redness Objective Labs 09/04/25 16:54 Labs: Laboratory Results - last 24 hr 09/04/25 16:54 WBC 8.5 D RBC 3.02 L Hgb 9.2 L Hct 27.1 L MCV 90 MCH 30.5 MCHC 33.9 RDW Std Deviation 43.7 Plt Count 159 D Neut % (Auto) 78 Lymph % (Auto) 15 [place] % (Auto) 6 Eos % (Auto) 1 Baso % (Auto) 0 Neut # (Auto) 6.6 Lymph # (Auto) 1.3 [place] # (Auto) 0.5 Eos # (Auto) 0.1 Baso # (Auto) 0.0 Immature Gran # (Auto) 0.02 H Absolute Nucleated RBC 0.00 Immature Gran % 0 Nucleated RBC % 0 Assessment & Plan Problem List (1) Encounter for supervision of high risk in third trimester, antepartum: Status: Acute (2) Mother positive for group B Streptococcus colonization: Status: Acute Assessment Comment Assessment comment: 24 hr pp Plan Comment Plan Comment: Discharge home with baby. Continue vitamins and iron. Tylenol ibuprofen for pain. Discussed danger signs and symptoms and ER precautions. Discussed signs symptoms of infection. Reviewed care vaginal laceration. Return in 4 weeks for visit Time Spent With Patient Time: Total time spent is greater than 50% in coordination of care (as documented) at patient's floor/unit and/or counseling patient:
--- NOTE | 2025-09-05 08:09 | PD.LDDS ---
DS: Providers Provider Date of admission: 09/02/25 14:23 Primary care physician: Physician No Primary/Family Admitting Provider: Pastora Null MD (OB Clinic) Attending Provider on Admission: Pearl Malik CNM Consults: 09/04/25 09:34 Referral Routine Comment: Attending Provider on DC: Pearl Malik CNM Discharging Provider: Pearl Malik CNM DS: Diagnosis Problem List Completed Was Problem List Reviewed/Reconciled?: Yes Summary/Hosp Course Brief History: The patient is a 29-year-old -0-1-2 at 40 weeks and 4 days with all care uncomplicated with Pearl at the [facility] OB clinic who presented for scheduled induction of labor secondary to postdates. Patient is positive for strep and ampicillin was started. She was 3 cm 80% -2 on admission. Oral Cytotec was ordered and ampicillin begun. She had an epidural with both her children is unsure if she wants 1 today. Her largest baby was 8 pounds. She denies any problems with her deliveries including blood transfusions hemorrhages or bad lacerations. No history of shoulder dystocia. Her care is up-to-date and the on the chart. She did have a elevated 1 hour glucose at 156 and never did her 3-hour glucose. Peripartum Data Delivery Method: Normal Vaginal Delivery Episiotomy Description: None Laceration Description: yes (vaginal) complications: none Time Spent with Patient Time attestation: Total time spent providing and/or coordinating discharge services: Exam Vital Signs Temp Pulse Resp BP Pulse Ox O2 Del Method 98.0 F 84 16 122/72 100 Room Air 09/05/25 04:10 09/05/25 04:10 09/05/25 04:10 09/05/25 04:10 09/05/25 04:10 09/05/25 04:10 Discharge Plan Plan Patient Disposition: HOME (Self Care) Patient condition on transfer: Stable Prescriptions/Referrals Prescriptions/Med Rec: No Action No Known Home Medications Referrals: No Primary/Family,Physician [Primary Care Provider] Patient/Caregiver Discharge Instructions Meds to Beds: No Discharge Activity: resume usual activities Other Discharge Activity Instructions:: Follow up with OB in 3 weeks, call for an appointment Education Materials: After a Vaginal , Breast Care After , Incision Care After Vaginal Print Language: Amharic Activity Restrictions/Additional Instructions: Discussed care of vaginal laceration. Continue vitamins and iron. Tylenol or ibuprofen for pain. Discussed danger signs symptoms and ER precautions. Discussed signs symptoms of infection. Increase fluids. And return in 4 weeks for visit Stand Alone Forms: [facility] Award Info., Patient Portal Info Letter Discharge Order Discharge Orders: Discharge (Routine); Ordered 09/05/25 Ordered By: Pearl Malik Planned Discharge Date 09/05/25
--- NOTE | 2025-09-05 10:34 | PC.SS ---
UMBRELLA REPAIRER conducted bedside contact with the patient to address nursing referral indicating patient was late to care at 15 weeks.? UMBRELLA REPAIRER introduced self and role.? At bedside with patient was FOB, Nitesh Espinoza.? Patient gave permission for FOB to be present during discussion.? UMBRELLA REPAIRER reviewed basis of referral.? Patient confirmed late to care (16 weeks) due to the patient becoming aware of late in stage.? Patient stated no initial presence of symptoms indicating .? Upon confirmation, initial OB appointment made after 12 week threshold. ?OB services conducted with Pearl Malik.? Patient reports consistency with OB appointments.? Infant, Cristal; is the patient?s third child.? Infant delivered naturally.? Patient?s other children are ages 10 and 8 years old.? Patient is not receiving WIC, SNAP or TANF.? Patient denies history of alcohol/drug abuse.? Patient reports history of CWS intervention approximately 5 years ago.? Patient stated that possessing full custody of children, services included parenting classes.? Patient denies episodes of domestic violence.? Patient denies possessing a history of mental health, reports no current possession of depression or anxiety.? Patient plans on combo feeding the .? Patient has access to appropriate supplies and equipment; to include a car seat.? FOB will provide transportation upon discharge.? Patient describes possessing support system consisting of FOB, parents and extended family.? UMBRELLA REPAIRER provided the patient with community resources to include Parenting Network and Warm Line.? No further intervention required at this time, hospital social worker will be available to address any further concerns.? UMBRELLA REPAIRER updated bedside nurse.?
== END 2025-09-05 14:50 | disposition home or self-care (01) | DRG 807 ==
LOC: S4SX 09-04 10:57 → S4NX 09-04 13:41
PROVIDERS: Admitting Provider Obstetrics & Gynecology; Visit Provider Advanced Practice Midwife
DX: O48.0 Post-term pregnancy (principal); Z37.0 Single live birth; O71.82 Other specified trauma to perineum and vulva; Z3A.40 40 weeks gestation of pregnancy; O99.824 Streptococcus B carrier state complicating childbirth
CPT/HCPCS: 36415; 59409; 80307; 84112; 85025; 86780; 86850; 86900; 86901; J0290; J2210; J2590; J3490; J7050; J7120; S0191; A9270